=== PATIENT | female | born 1940 ===

== ENCOUNTER → 2017-08-01 | Outpatient (CLI) | payer MEDICARE ==
[~2017-08-01] MED LIST: ACET500 PO; AMOCLA875 PO; CEFU500 PO; CEPH500 PO; Diflucan100 MG PO; Flonase 0.05% N16 GM; LANS30EC PO; MECL25 PO; METF500 PO; METPRE4DP PO; NITR100CA PO; OMEP20ER PO; OXYACE5T PO; PARO10 PO; PHENA200 PO; PROBIOTICS; SIMV10 PO
== END ==
LOC: LAB EV 10:51
DX: N30.01 Acute cystitis with hematuria (principal)
CPT/HCPCS: 87077; 87086; 87186

== ENCOUNTER 2019-04-11 05:57 | Day surgery (SDC) | payer MEDICARE ==
[~2019-04-11] VITALS: Ht 149.9 cm; Wt 46.5 kg
[~2019-04-11 05:57] MED LIST changes: +Reclast 55 MG/100 M IV
[2019-04-11] MEDS ORDERED: VITAMIN D31000 UNI2 PO (06:25)
[2019-04-11] MEDS ORDERED: IRON240 MG PO (06:26)
--- NOTE | 2019-04-11 06:56 | NUR ---
Ambulatory in Day Surgery History, Chart, Medications and Allergies reviewed before start of procedure. Lungs clear T/O to Auscultation. Patient confirms NPO status and agrees with scheduled surgery. Pre-Op teaching done. Pt verbalizes understanding.
--- NOTE | 2019-04-11 16:14 | NUR ---
POST-OP: REPORT RECIEVED FROM QUALIFIED [employer] ELECT[employer]ICIAN. PT TO UNIT AT ABOUT 0920. UPON ASSESSMENT PT IS A/O, VSS, IN NO VISABLE DISTRESS. PT DENIES PAIN/NAUSEA. SMALL AMT BLEED ON RYLEE PAD. ABLE TO SIP SOME WATER. WILL CTM
--- NOTE | 2019-04-11 17:43 | NUR ---
PT IS DOING WELL AND REQUESTING DISCHARGE. MESSAGE LEFT WITH DR. BURNS'S OFFICE AT ABOUT 1700. AWAITING CALL BACK AT THIS TIME.
--- NOTE | 2019-04-11 18:17 | NUR ---
SPOKE WITH DR. BURNS AT 1750. ORDERS TO DISCHARGE AFTER PT VOIDS. WOODY AND VAGINAL PACKING DC'D AT ABOUT 1800. WILL AWAIT PT VOID
--- NOTE | 2019-04-11 18:45 | NUR ---
DISCHARGE: PACKET PRINTED AND PT EDUCATED. PT ABLE TO VOID. PT AWAITING FAMILY FOR RIDE, WILL DISCHARGE WHEN THEY ARRIVE.
--- NOTE | 2019-04-11 19:29 | NUR ---
PT AMB VIA W/C BY FAMILY MEMBER. D/C INSTRUCTIONS W/PT, PT AND FAMILY HAD NO FURTHER QUESTIONS UPON D/C.
== END 2019-04-11 19:29 | disposition home or self-care (01) ==
LOC: ORSCMMR 05:57 → ORD 07:30 → ORSCMMR 07:30 → SURS 09:26 → ORSCMMR 19:29
PROVIDERS: Obstetrics & Gynecology
PROC: 0JQC0ZZ Repair Pelvic Region Subcutaneous Tissue and Fascia, Open Approach (ICD-10-PCS; principal; 2019-04-11 07:30)
DX: N81.6 Rectocele (principal); N94.89 Other specified conditions associated with female genital organs and menstrual cycle; I10 Essential (primary) hypertension; E78.5 Hyperlipidemia, unspecified; E11.9 Type 2 diabetes mellitus without complications; Z79.899 Other long term (current) drug therapy
CPT/HCPCS: 82947; J0171; J1100; J1885; J2405; J2704; J3010; J7120

== ENCOUNTER → 2019-08-12 | Outpatient (CLI) | payer MEDICARE ==
[~2019-08-12] MED LIST changes: +IRON240 MG PO; +VITAMIN D31000 UNI2 PO
== END | disposition home or self-care (01) ==
LOC: PLD 08:00 → LAB SHORT 08:00
DX: L57.8 Other skin changes due to chronic exposure to nonionizing radiation (principal); L81.4 Other melanin hyperpigmentation
CPT/HCPCS: 88305

== ENCOUNTER → 2020-06-13 | Outpatient (CLI) | payer MEDICARE | LOC: LAB SHORT 13:59 → PLD 13:59 | DX: N39.0 Urinary tract infection, site not specified (principal) | CPT/HCPCS: 87077; 87086; 87186 ==

== ENCOUNTER 2020-11-18 08:11 | Day surgery (SDC) | payer OTHER ==
--- NOTE | 2020-11-18 08:49 | NUR ---
PT AMBULATES TO DAY SURGERY. IV STARTED PER ORDERS. PT REPORTS HOLDING PREDNISONE, REPORTS MD CALLED AND REPORTED SHE DOESNT NEED PREDNISONE, SHE DID NOT HAVE A RX TO IODINE, IT WAS A PLANT BASED PRODUCT. RADIOLOGY CALLED AND NOTIFIED.
--- NOTE | 2020-11-18 09:37 | NUR ---
PT TOLERATED PROCEDURE WELL. DENIES S/S OF INFUSION RX p CONSTRAST. IV DC'D, CATH INTACT AND PRESSURE DRESSING APPLIED. GIVEN DC INSTRUCTIONS. VERBALIZES AN UNDERSTANDING s QUESTIONS. AMB OTD IN NAD.
== END 2020-11-18 22:54 | disposition home or self-care (01) ==
LOC: ORD 08:11 → CT 08:11 → ORSCMMR 08:11 → CT 09:00 → ORSCMMR 22:54
DX: R94.39 Abnormal result of other cardiovascular function study (principal); R94.31 Abnormal electrocardiogram [ECG] [EKG]; R42 Dizziness and giddiness; E11.9 Type 2 diabetes mellitus without complications; E78.2 Mixed hyperlipidemia; D64.9 Anemia, unspecified; K21.9 Gastro-esophageal reflux disease without esophagitis; Z88.1 Allergy status to other antibiotic agents; Z88.8 Allergy status to other drugs, medicaments and biological substances; Z91.041 Radiographic dye allergy status
CPT/HCPCS: 75574; Q9967

== ENCOUNTER → 2022-09-04 | Outpatient (CLI) | payer MEDICARE ==
[2022-09-10 10:09] LABS: HSV-1 DNA Negative (Negative); HSV-2 DNA Negative (Negative)
== END | disposition home or self-care (01) ==
LOC: LAB 16:14 → LAB SHORT 16:14
PROVIDERS: Emergency Medicine
DX: L98.9 Disorder of the skin and subcutaneous tissue, unspecified (principal)
CPT/HCPCS: 87529

== ENCOUNTER → 2022-12-26 | Outpatient (CLI) | payer MEDICARE | LOC: LAB SHORT 14:26 → LAB 14:26 | DX: J02.9 Acute pharyngitis, unspecified (principal) | CPT/HCPCS: 87081 ==

== ENCOUNTER 2024-01-10 08:44 | Day surgery (SDC) | payer MEDICARE ==
[2024-01-10] VITALS (12 sets, daily range): BP systolic 115–145; BP diastolic 53–62
[~2024-01-10] VITALS: Ht 144.8 cm; Wt 45.2 kg
[~2024-01-10 08:44] MED LIST changes: +CeFAZolin Sodium 2,000 MG in NS 100 ML IV SCH; +EPIPEN0.3 MG/0.3 IM; +LOPE2C PO; +Lactated Ringer's 1,000 ML IV SCH; +VITAMIN D310 MC4 PO; -VITAMIN D31000 UNI2 PO
[2024-01-10] MEDS ORDERED: Bupivacaine 0.5% Inj 50 ML Vial ONE (10:39)
[2024-01-10] MEDS ORDERED: Rocuronium Bromide 10 MG/ML 5ML Injection IV ONE (10:56)
[2024-01-10] MEDS ORDERED: propofoL 20 ML IV ONE (10:56)
[2024-01-10] MEDS ORDERED: FentaNYL Citrate 50 MCG/ML 2 ML Injection ONE ×2 (10:56→13:07)
[2024-01-10] MEDS ORDERED: Ondansetron HCl 2 MG / ML 2ML Vial ONE (11:35)
[2024-01-10] MEDS ORDERED: Atropine Sulfate 0.4 MG/1 ML Vial ONE (11:35)
[2024-01-10] MEDS ORDERED: Metoclopramide HCl 5MG / ML 2ML Vial ONE (11:35)
[2024-01-10] MEDS ORDERED: Phenylephrine HCl 100 MCG/ML-NS 10MLSYR (1MG/10ML) ONE (12:24)
[2024-01-10] MEDS ORDERED: Sugammadex Sodium 200 MG/2ML SDV (100 MG/ML) ONE (13:05)
[2024-01-10] MEDS ORDERED: OxyCODONE 5 mg/Acetamin 325 mg TABLET PO PRN (13:35)
[2024-01-10] MEDS ORDERED: Acetaminophen 500 MG Tab PO ONE (14:15)
--- NOTE | 2024-01-10 15:18 | NUR ---
Patient up to Ambulate independently. Gait steady. Discharge instructions reviewed with patient. Patient verbalizes understanding. Copy given to patient to take home, WELL FAMILY/FRIEND. Patient States Post-Procedure ride home has been arranged. Discharged via wheelchair to private car for ride home.
== END 2024-01-10 15:18 | disposition home or self-care (01) ==
LOC: ORSCMMR 08:44 → ORD 10:30 → ORSCMMR 15:18
PROVIDERS: Surgery
PROC: 8E0W4CZ Robotic Assisted Procedure of Trunk Region, Percutaneous Endoscopic Approach (ICD-10-PCS; principal; 2024-01-10 10:30)
PROC: 0YUA4JZ Supplement Bilateral Inguinal Region with Synthetic Substitute, Percutaneous Endoscopic Approach (ICD-10-PCS; principal; 2024-01-10 10:30)
PROC: 0WUF4JZ Supplement Abdominal Wall with Synthetic Substitute, Percutaneous Endoscopic Approach (ICD-10-PCS; principal; 2024-01-10 10:30)
DX: K43.6 Other and unspecified ventral hernia with obstruction, without gangrene (principal); K40.30 Unilateral inguinal hernia, with obstruction, without gangrene, not specified as recurrent; K40.90 Unilateral inguinal hernia, without obstruction or gangrene, not specified as recurrent; K41.20 Bilateral femoral hernia, without obstruction or gangrene, not specified as recurrent; K45.8 Other specified abdominal hernia without obstruction or gangrene; N73.6 Female pelvic peritoneal adhesions (postinfective); I10 Essential (primary) hypertension; E11.9 Type 2 diabetes mellitus without complications; Z79.84 Long term (current) use of oral hypoglycemic drugs; Z79.899 Other long term (current) drug therapy
CPT/HCPCS: 82947; A9270; C1781; J0461; J0690; J2371; J2405; J2704; J2765; J3010; J7120

== ENCOUNTER → 2024-04-04 | Outpatient (CLI) | payer MEDICARE ==
[~2024-04-04] MED LIST changes: -CeFAZolin Sodium 2,000 MG in NS 100 ML IV SCH; -Lactated Ringer's 1,000 ML IV SCH
== END | disposition home or self-care (01) ==
LOC: LAB 12:58 → LAB SHORT 12:58
DX: N39.0 Urinary tract infection, site not specified (principal)
CPT/HCPCS: 87077; 87086; 87186

== ENCOUNTER 2024-07-05 14:56 | Emergency (ER) | payer OTHER, MEDICARE ==
[~2024-07-05] VITALS: Ht 149.9 cm; Wt 47.6 kg
[2024-07-05 15:52] LABS: BASOPHILS ABSOLUTE AUTO 0.04 K/mm3 (0.00-0.23); BASOPHILS PERCENT AUTO 1 % (0-2); EOSINOPHILS ABSOLUTE AUTO 0.23 K/mm3 (0.00-0.68); EOSINOPHILS PERCENT AUTO 3 % (0-6); Hematocrit 40.5 % (33.0-51.0); Hemoglobin 13.7 g/dL (11.5-16.0); IMMATURE GRAN ABSOLUTE AUTO 0.02 K/mm3 (0.00-0.10); IMMATURE GRAN PERCENT AUTO 0 % (0-1); LYMPHOCYTES ABSOLUTE AUTO 2.31 K/mm3 (0.84-5.20); LYMPHOCYTES PERCENT AUTO 33 % (21-46); MONOCYTES ABSOLUTE AUTO 0.48 K/mm3 (0.16-1.47); MONOCYTES PERCENT AUTO 7 % (4-13); Mean Corpuscular HGB 30.9 pg (26.0-34.0); Mean Corpuscular HGB Conc 33.8 g/dL (31.5-36.5); Mean Corpuscular Volume 91 fL (80-100); Mean Platelet Volume 9.9 fL (9.1-12.4); NEUTROPHILS ABSOLUTE AUTO 3.85 K/mm3 (1.96-9.15); NEUTROPHILS PERCENT AUTO 56 % (41-73); Platelet Count 268 K/mm3 (150-400); RDW Coefficient Variation 12.2 % (11.7-14.2); RDW Standard Deviation 41.3 fL (35.1-46.3); Red Blood Cell Count 4.43 M/mm3 (3.80-5.20); White Blood Cell Count 6.93 K/mm3 (4.00-11.30)
[2024-07-05 16:14] LABS: Albumin, Blood 3.9 g/dL (3.4-5.0); Albumin/Globulin Ratio 0.9 (0.8-1.8); Bilirubin, Total 0.3 mg/dL (0.1-1.0); Bun/Creatinine Ratio 24.1 (12.0-20.0); Calcium, Blood 9.8 mg/dL (8.5-10.1); Creatinine, Blood 0.58 mg/dL (0.40-1.00); Globulin, Blood 4.2 g/dL (2.2-4.0); Potassium, Blood 4.4 mmol/L (3.5-5.5); Total Protein, Blood 8.1 g/dL (6.4-8.2)
[2024-07-05] MEDS ORDERED: PROLIA60 MG/1 ML SC (17:12)
[2024-07-05 17:30] LABS: Source, Urine Clean Catch
[2024-07-05 17:36] LABS: Appearance, Urine Clear (Clear); Bilirubin, Urine Neg (Neg); Blood, Urine Neg (Neg); Glucose Qualitative, Urine Neg (Neg); Ketones, Urine Neg (Neg); Leukocyte Esterase, Urine Neg (Neg); Nitrite, Urine Neg (Neg); Protein, Urine Neg (Neg); Specific Gravity, Urine 1.015 (1.003-1.022); Urobilinogen, Urine NORM (Normal)
[2024-07-05 17:45] LABS: Color, Urine Pale Yellow (P-Yellow)
[2024-07-05 18:04] LABS: Free Thyroxine 0.81 ng/dL (0.70-1.60); Magnesium, Blood 1.8 mg/dL (1.6-2.4)
[2024-07-05 18:08] LABS: Thyroid Stimulating Hormone 3.73 uIU/mL (0.360-4.800)
[2024-07-05 18:21] VITALS: BP 172/65
== END 2024-07-05 18:34 | disposition home or self-care (01) ==
LOC: ER 14:56
PROVIDERS: Student in an Organized Health Care Education/Training Program
DX: S00.03XA Contusion of scalp, initial encounter (principal); E11.9 Type 2 diabetes mellitus without complications; W01.0XXA Fall on same level from slipping, tripping and stumbling without subsequent striking against object, initial encounter; Z79.899 Other long term (current) drug therapy; Z91.030 Bee allergy status; Z88.8 Allergy status to other drugs, medicaments and biological substances
CPT/HCPCS: 70450; 72125; 80053; 81003; 83735; 84439; 84443; 85025; 93005; 93010; 99284-25